=== PATIENT | male | born 1945 | race Caucasian/White ===

== ENCOUNTER → 2017-11-23 | Outpatient (CLI) | payer MEDICARE ==
--- NOTE | 2017-11-23 21:10 | EST ---
EXERCISE STRESS DATE OF SERVICE: 11/23/2017 AGE: 72 SEX: Male HT: 72" WT: 205 PROTOCOL: Stress Echo STAGE: 2 DURATION OF EXERCISE: 5 minutes HEART RATE REST: 71 BLOOD PRESSURE REST: 124/68 MAXIMUM HEART RATE ACHIEVED: 130 MAXIMUM BLOOD PRESSURE: 198/47 85% MPHR: 124 100% MPHR: 146 METS: 7.0 INDICATIONS: Short of breath. CONCLUSION: Baseline EKG revealed normal sinus rhythm without significant ST-T changes. Patient walked on a standard Kevon protocol for 5 minutes and achieved a maximal heart rate of 130 beats per minute which is more than 85% of predicted maximal. He developed fatigue and shortness of breath but did not have any angina or arrhythmia. His resting heart rate was 70 beats per minute. Peak heart rate is 130 beats per minute. Resting blood pressure was 124/68 and peak blood pressure was 198/47. EKG was unremarkable. By EKG criteria, this is a negative stress test with limited exercise capacity. Rare isolated PVC was noted. There was no angina. Baseline echo images revealed normal wall motion and thickening of all segments. At peak exercise there was good augmentation of left ventricular wall motion wall thickening of all segments suggesting that there is no evidence of any stress-induced ischemia on this study. IMPRESSION: 1. By EKG criteria this is a negative stress test with limited exercise capacity. 2. Normal stress echocardiogram. MMODL / IJN: [id number] /
== END | disposition home or self-care (01) ==
LOC: RADNMMAIN 08:55
PROVIDERS: ATTEND Family Medicine
DX: R06.02 Shortness of breath (principal)
CPT/HCPCS: 93351

== ENCOUNTER 2023-11-30 11:45 | Emergency (ER) | payer MEDICARE ==
[2023-11-30 12:07] VITALS: BP 123/73; PULSE 77; RESP 18; TEMP 98.1
[2023-11-30] MEDS ORDERED: CLOBETASOL PROP 0.05% CR 15GM TOPICAL STA (12:33)
[2023-11-30 12:45] LABS: Glucose,Whole Blood 182 mg/dL (70-110)
[2023-11-30 13:07] LABS: Appearance,Urine Clear (Clear); Bilirubin,Urine Negative (Negative); Blood,Urine Trace (Negative); Calcium Oxalate Crystals,Urine Rare /hpf; Color,Urine Light Yellow; Glucose,Urine (UA) 4+ (Negative); Ketones,Urine Negative (Negative); Leukocyte Esterase,Urine Moderate (Negative); Mucus,Urine Occasional /hpf; Nitrite,Urine Negative (Negative); PH, Urine 5.5 (5.0-8.0); Protein,Urine Trace (Negative); RBC,Urine 4 /hpf (0-5); Specific Gravity,Urine 1.025 (1.001-1.035); Squamous Epithelial Cell,Urine 2 /hpf (0-4); Urobilinogen,Urine <2.0 mg/dL (<2.0); WBC,Urine 4 /hpf (0-5)
--- NOTE | 2023-11-30 15:12 | ED ---
Male Urogenital HPI - General Chief complaint: Urogenital Stated complaint: Urogenital Time Seen by Provider: 11/30/23 11:58 Source: patient, RN notes reviewed Mode of arrival: ambulatory Limitations: no limitations - History of Present Illness Initial comments: This is an 78-year-old male presenting with swelling of his foreskin x 4 days. Patient states he is still able to urinate but having some difficulty due to partial obstruction. Patient endorses recent history of similar symptoms about 1 month ago, receiving steroid cream he has been applying for several days with minimal relief. Patient otherwise denies urinary symptoms states he has been taking tamsulosin for BPH with improvement noted. Also endorses history of diabetes. Patient denies urethral discharge, dysuria, suprapubic pressure, hematuria, fever, chills. MD Complaint: other (Foreskin edema) Onset/Timin -: days(s) Location: penis Radiation: none - Related Data Previous Rx's Medication Instructions Recorded Cephalexin [Keflex] 500 mg PO Q6HR 1 Days #40 cap 11/30/23 Clobetasol Propionate [Temovate 1 applic TOPICAL BID #15 gm 11/30/23 0.05% Cream] Clotrimazole Cream [Lotrimin Cream] 1 applic TOPICAL BID #15 gm 11/30/23 Allergies Allergy/AdvReac Type Severity Reaction Status Date / Time barium iodide Allergy Unknown Verified 11/30/23 12:03 barium sulfate Allergy Unknown Verified 11/30/23 12:03 Review of Systems ROS Statement: Those systems with pertinent positive or pertinent negative responses have been documented in the HPI. ROS Other: All systems not noted in ROS Statement are negative. Past Medical History Past Medical History: Diabetes Mellitus, Hyperlipidemia, Hypertension Past Surgical History: Unable to Obtain Smoking Status: Never smoker Past Alcohol Use History: None Reported Past Drug Use History: None Reported General Exam - General Exam Comments Initial Comments: Patient appears to demonstrate early signs of memory loss/dementia Limitations: no limitations General appearance: alert, in no apparent distress Head exam: Present: atraumatic, normocephalic, normal inspection Eye exam: Present: normal appearance, PERRL, EOMI. Absent: scleral icterus, conjunctival injection, periorbital swelling ENT exam: Present: normal exam, mucous membranes moist Neck exam: Present: normal inspection. Absent: tenderness, meningismus, lymphadenopathy Respiratory exam: Present: normal lung sounds bilaterally. Absent: respiratory distress, wheezes, rales, rhonchi, stridor Cardiovascular Exam: Present: regular rate, normal rhythm, normal heart sounds. Absent: systolic murmur, diastolic murmur, rubs, gallop, clicks GI/Abdominal exam: Present: soft, normal bowel sounds. Absent: distended, tenderness, guarding, rebound, rigid External exam: Present: erythema, swelling, other (Positive significant edema and erythema of foreskin. Unable to retract around glans. Negative urethral discharge or discharge from foreskin) Extremities exam: Present: normal inspection, full ROM, normal capillary refill. Absent: tenderness, pedal edema, joint swelling, calf tenderness Back exam: Present: normal inspection Neurological exam: Present: alert, oriented X3, CN II-XII intact Psychiatric exam: Present: normal affect, normal mood Skin exam: Present: warm, dry, intact, normal color. Absent: rash Course Vital Signs 11/30/23 12:03 Temperature 98.1 F Pulse Rate 77 Respiratory 18 Rate Blood Pressure 123/73 O2 Sat by Pulse 96 Oximetry Medical Decision Making - Medical Decision Making Was pt. sent in by a medical professional or institution (MICKIE Oneal, MIXING MACHINE FEEDER, urgent care, hospital, or snf...) When possible be specific @ -[No] Did you speak to anyone other than the patient for history (EMS, parent, family, police, friend...)? What history was obtained from this source @ -[No] Did you review nursing and triage notes (agree or disagree)? Why? @ -[I reviewed and agree with nursing and triage notes] Were old charts reviewed (outside hosp., previous admission, EMS record, old EKG, old radiological studies, urgent care reports/EKG's, snf records)? Report findings @ -[No old charts were reviewed] Differential Diagnosis (chest pain, altered mental status, abdominal pain women, abdominal pain men, vaginal bleeding, weakness, fever, dyspnea, syncope, headache, dizziness, GI bleed, back pain, seizure, CVA, palpatations, mental he alth, musculoskeletal)? @ -Phimosis, balanitis, UTI, cellulitis STI, Mel infection EKG interpreted by me (3pts min.). @ -Not on X-rays interpreted by me (1pt min.). @ -[None done] CT interpreted by me (1pt min.). @ -[None done] U/S interpreted by me (1pt. min.). @ -[None done] What testing was considered but not performed or refused? (CT, X-rays, U/S, labs)? Why? @ -[None] What meds were considered but not given or refused? Why? @ -Attempted clobetasol application with patient. Patient declined stating he wanted to take the cream at home with him. Due to delay in cream arrival, Patient became agitated and left prior to application of cream. Did you discuss the management of the patient with other professionals (professionals i.e. , PA, MIXING MACHINE FEEDER, lab, RT, psych nurse, manager social responsibility, court crier, teacher, founder chairman and chief creative officer, lining caser)? Give summary @ -[No] Was smoking cessation discussed for >3mins.? @ -[No] Was critical care preformed (if so, how long)? @ -[No] Were there social determinants of health that impacted care today? How? (Homelessness, low income, unemployed, alcoholism, drug addiction, transportation, low edu. Level, literacy, decrease access to med. care, [facility], rehab)? @ -[No] Was there de-escalation of care discussed even if they declined (Discuss DNR or withdrawal of care, Hospice)? DNR status @ -[No] What co-morbidities impacted this encounter? (DM, HTN, Smoking, COPD, CAD, Cancer, CVA, ARF, Chemo, Hep., AIDS, mental health diagnosis, sleep apnea, morbid obesity)? @ -[None] Was patient admitted / discharged? Hospital course, mention meds given and route, prescriptions, significant lab abnormalities, going to OR and other pertinent info. @ -Discharged/elopement AGAINST MEDICAL ADVICE. UA revealed leukocyte Estrace but minimal white blood cells or bacteria. Patient left prior to attempted treatment. Keflex, clotrimazole cream, clobetasol cream sent to pharmacy. Chauncey follow-up with urology for ongoing symptoms. Undiagnosed new problem with uncertain prognosis? @ -[No] Drug Therapy requiring intensive monitoring for toxicity (Heparin, Nitro, Insulin, Cardizem)? @ -[No] Were any procedures done? @ -[No] Diagnosis/symptom? @ -Phimosis, cellulitis/candidal infection Acute, or Chronic, or Acute on Chronic? @ -Acute Uncomplicated (without systemic symptoms) or Complicated (systemic symptoms)? @ -Uncomplicated Side effects of treatment? @ -[No] Exacerbation, Progression, or Severe Exacerbation? @ -[No] Poses a threat to life or bodily function? How? (Chest pain, [place], [place], pneumonia, PE, COPD, DKA, ARF, appy, cholecystitis, CVA, Diverticulitis, Homicidal, Suicidal, threat to staff... and all critical care pts) @ -[No] - Lab Data Lab Results 11/30/23 11/30/23 Range/Units 12:44 12:50 POC Glucose (mg/dL) 182 H (70-110) mg/dL POC Glu Carry Out Clerk ID Mynor Jefferson Urine Color Light Yellow Urine Appearance Clear (Clear) Urine pH 5.5 (5.0-8.0) Ur Specific Di[place] 1.025 (1.001-1.035) Urine Protein Trace H (Negative) Urine Glucose (UA) 4+ H (Negative) Urine Ketones Negative (Negative) Urine Blood Trace H (Negative) Urine Nitrite Negative (Negative) Urine Bilirubin Negative (Negative) Urine Urobilinogen <2.0 (<2.0) mg/dL Ur Leukocyte Esterase Moderate H (Negative) Urine RBC 4 (0-5) /hpf Urine WBC 4 (0-5) /hpf Ur Squamous Epith Cells 2 (0-4) /hpf Calcium Oxalate Crystal Rare H (None) /hpf Urine Mucus Occasional H (None) /hpf Disposition Clinical Impression: Phimosis of penis, Balanitis, Cellulitis of skin Disposition: LEFT AGAINST MEDICAL ADVICE Condition: Good Instructions (If sedation given, give patient instructions): Phimosis (ED) Prescriptions: Cephalexin [Keflex] 500 mg PO Q6HR 1 Days #40 cap Clotrimazole Cream [Lotrimin Cream] 1 applic TOPICAL BID #15 gm Clobetasol Propionate [Temovate 0.05% Cream] 1 applic TOPICAL BID #15 gm Is patient prescribed a controlled substance at d/c from ED?: No Referrals: Allan Banks MD [Primary Care Provider] - 1-2 days Time of Disposition: 13:50
== END 2023-11-30 15:54 | disposition left against medical advice (07) ==
LOC: EC 11:45
CPT/HCPCS: 36415; 81001; 99283

== ENCOUNTER 2023-12-10 09:03 | Emergency (ER) | payer MEDICARE ==
[2023-12-10 09:33] VITALS: TEMP 97.8
[2023-12-10 10:16] LABS: Basophils % (A) 0 %; Eosinophils # (A) 0.1 k/uL (0-0.7); Eosinophils % (A) 1 %; HCT 47.5 % (39.0-53.0); HGB 15.9 gm/dL (13.0-17.5); Lymphocytes % (A) 14 %; MCHC 33.4 g/dL (31.0-37.0); MCV 95.9 fL (80.0-100.0); Mean Platelet Volume 7.9; Monocytes # (A) 0.4 k/uL (0-1.0); Monocytes % (A) 6 %; Neutrophils # (A) 5.4 k/uL (1.3-7.7); Neutrophils % (A) 77 %; Platelet Count 166 k/uL (150-450); RBC 4.95 m/uL (4.30-5.90); RDW 12.6 % (11.5-15.5); WBC 7.1 k/uL (3.8-10.6)
[2023-12-10 10:17] LABS: Appearance,Urine Clear (Clear); Bilirubin,Urine Negative (Negative); Blood,Urine Small (Negative); Color,Urine Light Yellow; Glucose,Urine (UA) 4+ (Negative); Ketones,Urine Negative (Negative); Leukocyte Esterase,Urine Trace (Negative); Mucus,Urine Occasional /hpf; Nitrite,Urine Negative (Negative); PH, Urine 5.5 (5.0-8.0); Protein,Urine Negative (Negative); RBC,Urine 2 /hpf (0-5); Specific Gravity,Urine 1.025 (1.001-1.035); Urobilinogen,Urine <2.0 mg/dL (<2.0); WBC,Urine 2 /hpf (0-5)
[2023-12-10 10:24] LABS: ALT 26 U/L (4-49); African American GFR (CKD) >90 (>60 ml/min/1.73 sqM); Anion Gap 6 mmol/L; Blood Urea Nitrogen 18 mg/dL (9-20); Calcium 8.4 mg/dL (8.4-10.2); Carbon Dioxide 25 mmol/L (22-30); Chloride 106 mmol/L (98-107); Glucose 164 mg/dL (74-99); Non-African American GFR(CKD) >90 (>60 ml/min/1.73 sqM); Sodium 137 mmol/L (137-145)
[2023-12-10 10:28] LABS: AST 35 U/L (17-59); Albumin 3.7 g/dL (3.5-5.0); Alkaline Phosphatase 49 U/L (38-126); Potassium 4.5 mmol/L (3.5-5.1); Total Bilirubin 1.2 mg/dL (0.2-1.3); Total Protein 6.2 g/dL (6.3-8.2)
--- NOTE | 2023-12-10 11:06 | ED ---
Male Urogenital HPI - General Chief complaint: Urogenital Stated complaint: Urogenital Time Seen by Provider: 12/10/23 09:30 Source: patient, RN notes reviewed Mode of arrival: ambulatory Limitations: altered mental status - History of Present Illness Initial comments: 78-year-old male presenting to the ER with a chief complaint of penile pain. Patient is a known diabetic. Patient reports this been ongoing for the past 2 weeks. He was seen here on 11/30/23 and diagnosed with a UTI and balanitis patient was started on Keflex, clotrimazole cream and clobetasol cream. Patient states he used creams for 4 days and saw no improvement so he stopped using them. He has been taking Keflex as prescribed. He has not seen any improvement in his symptoms and has been noticing increase in pain. He states that he is unable to pull back foreskin to urinate due to the pain. He has been able to urinate without difficulty but does not pull back the foreskin. Patient denies any abdominal pain, fevers, chills, nausea, vomiting or other complaints. - Related Data Previous Rx's Medication Instructions Recorded Cephalexin [Keflex] 500 mg PO Q6HR 1 Days #40 cap 11/30/23 Clobetasol Propionate [Temovate 1 applic TOPICAL BID #15 gm 11/30/23 0.05% Cream] Clotrimazole Cream [Lotrimin Cream] 1 applic TOPICAL BID #15 gm 11/30/23 Fluconazole 150 mg PO ONCE #2 tab 12/10/23 Allergies Allergy/AdvReac Type Severity Reaction Status Date / Time barium iodide Allergy Unknown Verified 12/10/23 09:10 barium sulfate Allergy Unknown Verified 12/10/23 09:10 Review of Systems ROS Statement: Those systems with pertinent positive or pertinent negative responses have been documented in the HPI. ROS Other: All systems not noted in ROS Statement are negative. Past Medical History Past Medical History: Diabetes Mellitus, Hyperlipidemia, Hypertension Past Surgical History: Unable to Obtain Smoking Status: Never smoker Past Alcohol Use History: None Reported Past Drug Use History: None Reported General Exam Limitations: altered mental status General appearance: alert, in no apparent distress Respiratory exam: Present: normal lung sounds bilaterally. Absent: respiratory distress, wheezes, rales, rhonchi, stridor Cardiovascular Exam: Present: regular rate, normal rhythm, normal heart sounds. Absent: systolic murmur, diastolic murmur, rubs, gallop, clicks GI/Abdominal exam: Present: soft, normal bowel sounds. Absent: distended, tenderness, guarding, rebound, rigid exam: Present: other (Erythematous glans of penis with white thick plaque surrounding shaft and foreskin. No penile discharge. Area is tender to touch. Foreskin is able to be pulled back and reduced) Neurological exam: Present: alert, oriented X3, CN II-XII intact Skin exam: Present: warm, dry, intact, normal color. Absent: rash Course Vital Signs 12/10/23 12/10/23 12/10/23 09:05 09:28 12:26 Temperature 97.6 F 97.8 F Pulse Rate 64 60 67 Respiratory 16 18 16 Rate Blood Pressure 143/71 126/91 146/85 O2 Sat by Pulse 99 97 Oximetry Medical Decision Making - Medical Decision Making Was pt. sent in by a medical professional or institution (, PA, AIRCRAFT INSTRUMENT MECHANIC, urgent care, hospital, or alf...) When possible be specific @ -No Did you speak to anyone other than the patient for history (EMS, parent, family, police, friend...)? What history was obtained from this source @ -No Did you review nursing and triage notes (agree or disagree)? Why? @ -I reviewed and agree with nursing and triage notes Were old charts reviewed (outside hosp., previous admission, EMS record, old EKG, old radiological studies, urgent care reports/EKG's, alf records)? Report findings @ -Past, I reviewed ER visit from 11-30-2023. Patient seen for similar complaint diagnosed with balanitis and UTI started on Keflex, clotrimazole and clobetasol. Differential Diagnosis (chest pain, altered mental status, abdominal pain women, abdominal pain men, vaginal bleeding, weakness, fever, dyspnea, syncope, headache, dizziness, GI bleed, back pain, seizure, CVA, palpatations, mental health, musculoskeletal)? @ -UTI, urinary retention, phimosis, testicular torsion, balanitis... This list is not meant to be all-inclusive EKG interpreted by me (3pts min.). @ -None done X-rays interpreted by me (1pt min.). @ -None done CT interpreted by me (1pt min.). @ -None done U/S interpreted by me (1pt. min.). @ -None done What testing was considered but not performed or refused? (CT, X-rays, U/S, labs)? Why? @ -None What meds were considered but not given or refused? Why? @ -None Did you discuss the management of the patient with other professionals (professionals i.e. , PA, AIRCRAFT INSTRUMENT MECHANIC, lab, RT, psych nurse, director social, perianesthesia manager, teacher, real estate loan officer, adult protective caseworker)? Give summary @ -No Was smoking cessation discussed for >3mins.? @ -No Was critical care preformed (if so, how long)? @ -No Were there social determinants of health that impacted care today? How? (Homelessness, low income, unemployed, alcoholism, drug addiction, transportation, low edu. Level, literacy, decrease access to med. care, nursing home, rehab)? @ -No Was there de-escalation of care discussed even if they declined (Discuss DNR or withdrawal of care, Hospice)? DNR status @ -No What co-morbidities impacted this encounter? (DM, HTN, Smoking, COPD, CAD, Cancer, CVA, ARF, Chemo, Hep., AIDS, mental health diagnosis, sleep apnea, morbid obesity)? @ -None Was patient admitted / discharged? Hospital course, mention meds given and route, prescriptions, significant lab abnormalities, going to OR and other pertinent info. @ -Discharge. 78-year-old male presented to the ER for evaluation of penile pain. Patient seen here 10 days prior for similar complaints started on Keflex, clotrimazole and clobetasol. History and physical exam completed. Vitals stable. Exam remarkable for erythema and thick white plaque to penile shaft and base. Findings consistent with a candidal infection. No penile discharge. No scrotal abnormalities. Due to patient reporting worsening of symptoms laboratory studies and urinalysis obtained. Laboratory studies unremarkable. Urinalysis showing 4+ glucose likely related to patient's diabetes. Small blood urine will be sent for culture. Postvoid bladder scan 30ml. I discussed at length with patient regarding how to properly clean and care for foreskin. I advised him to clean multiple times a day with warm soapy water and dry thoroughly prior to placing antifungal cream. I instructed patient to to continue using antifungal cream, clotrimazole, given at last ER visit. Patient also given p.o. Diflucan. I also instructed patient to follow-up closely with PCP for reevaluation and urology, referral given. Phimosis believed to be due to infection pain as I was able to completely retract and reduce foreskin. Patient is eager and stable for discharge at this time. Strict return parameters discussed. Patient discharged in stable condition with follow-up to PCP/urology. Patient verbally expressed understanding and agreement with care plan. Case discussed with ED attending, Dr. Trujillo. Undiagnosed new problem with uncertain prognosis? @ -No Drug Therapy requiring intensive monitoring for toxicity (Heparin, Nitro, Insulin, Cardizem)? @ -No Were any procedures done? @ -No Diagnosis/symptom? @ -Balanitis/phimosis of penis Acute, or Chronic, or Acute on Chronic? @ -Acute Uncomplicated (without systemic symptoms) or Complicated (systemic symptoms)? @ -Uncomplicated Side effects of treatment? @ -No Exacerbation, Progression, or Severe Exacerbation? @ -No Poses a threat to life or bodily function? How? (Chest pain, USA, [place], pneumonia, PE, COPD, DKA, ARF, appy, cholecystitis, CVA, Diverticulitis, Homicidal, Suicidal, threat to staff... and all critical care pts) @ -No - Lab Data Result diagrams: 12/10/23 09:57 12/10/23 09:57 Lab Results 12/10/23 12/10/23 12/10/23 Range/Units 09:57 09:57 09:57 WBC 7.1 (3.8-10.6) k/uL RBC 4.95 (4.30-5.90) m/uL Hgb 15.9 (13.0-17.5) gm/dL Hct 47.5 (39.0-53.0) % MCV 95.9 (80.0-100.0) fL MCH 32.0 (25.0-35.0) pg MCHC 33.4 (31.0-37.0) g/dL RDW 12.6 (11.5-15.5) % Plt Count 166 (150-450) k/uL MPV 7.9 Neutrophils % 77 % Lymphocytes % 14 % Monocytes % 6 % Eosinophils % 1 % Basophils % 0 % Neutrophils # 5.4 (1.3-7.7) k/uL Lymphocytes # 1.0 (1.0-4.8) k/uL Monocytes # 0.4 (0-1.0) k/uL Eosinophils # 0.1 (0-0.7) k/uL Basophils # 0.0 (0-0.2) k/uL Sodium 137 (137-145) mmol/L Potassium 4.5 (3.5-5.1) mmol/L Chloride 106 (98-107) mmol/L Carbon Dioxide 25 (22-30) mmol/L Anion Gap 6 mmol/L BUN 18 (9-20) mg/dL Creatinine 0.63 L (0.66-1.25) mg/dL Est GFR (CKD-EPI)AfAm >90 (>60 ml/min/1.73 sqM) Est GFR (CKD-EPI)NonAf >90 (>60 ml/min/1.73 sqM) Glucose 164 H (74-99) mg/dL Plasma Lactic Acid Brandon (0.7-2.0) mmol/L Calcium 8.4 (8.4-10.2) mg/dL Total Bilirubin 1.2 (0.2-1.3) mg/dL AST 35 (17-59) U/L ALT 26 (4-49) U/L Alkaline Phosphatase 49 (38-126) U/L Total Protein 6.2 L (6.3-8.2) g/dL Albumin 3.7 (3.5-5.0) g/dL Urine Color Light Yellow Urine Appearance Clear (Clear) Urine pH 5.5 (5.0-8.0) Ur Specific [place] 1.025 (1.001-1.035) Urine Protein Negative (Negative) Urine Glucose (UA) 4+ H (Negative) Urine Ketones Negative (Negative) Urine Blood Small H (Negative) Urine Nitrite Negative (Negative) Urine Bilirubin Negative (Negative) Urine Urobilinogen <2.0 (<2.0) mg/dL Ur Leukocyte Esterase Trace H (Negative) Urine RBC 2 (0-5) /hpf Urine WBC 2 (0-5) /hpf Urine Mucus Occasional H (None) /hpf 12/10/23 Range/Units 09:57 WBC (3.8-10.6) k/uL RBC (4.30-5.90) m/uL Hgb (13.0-17.5) gm/dL Hct (39.0-53.0) % MCV (80.0-100.0) fL MCH (25.0-35.0) pg MCHC (31.0-37.0) g/dL RDW (11.5-15.5) % Plt Count (150-450) k/uL MPV Neutrophils % % Lymphocytes % % Monocytes % % Eosinophils % % Basophils % % Neutrophils # (1.3-7.7) k/uL Lymphocytes # (1.0-4.8) k/uL Monocytes # (0-1.0) k/uL Eosinophils # (0-0.7) k/uL Basophils # (0-0.2) k/uL Sodium (137-145) mmol/L Potassium (3.5-5.1) mmol/L Chloride (98-107) mmol/L Carbon Dioxide (22-30) mmol/L Anion Gap mmol/L BUN (9-20) mg/dL Creatinine (0.66-1.25) mg/dL Est GFR (CKD-EPI)AfAm (>60 ml/min/1.73 sqM) Est GFR (CKD-EPI)NonAf (>60 ml/min/1.73 sqM) Glucose (74-99) mg/dL Plasma Lactic Acid Brandon 1.2 (0.7-2.0) mmol/L Calcium (8.4-10.2) mg/dL Total Bilirubin (0.2-1.3) mg/dL AST (17-59) U/L ALT (4-49) U/L Alkaline Phosphatase (38-126) U/L Total Protein (6.3-8.2) g/dL Albumin (3.5-5.0) g/dL Urine Color Urine Appearance (Clear) Urine pH (5.0-8.0) Ur Specific [place] (1.001-1.035) Urine Protein (Negative) Urine Glucose (UA) (Negative) Urine Ketones (Negative) Urine Blood (Negative) Urine Nitrite (Negative) Urine Bilirubin (Negative) Urine Urobilinogen (<2.0) mg/dL Ur Leukocyte Esterase (Negative) Urine RBC (0-5) /hpf Urine WBC (0-5) /hpf Urine Mucus (None) /hpf Disposition Clinical Impression: Balanitis, Phimosis of penis Disposition: HOME SELF-CARE Condition: Stable Instructions (If sedation given, give patient instructions): Foreskin Care (ED), Balanitis (ED) Additional Instructions: Continue using clotrimazole (lotrimin) twice daily until symptoms resolve. Take another fluconazole on 12/13/23. I recommend cleaning the foreskin multiple times a day. Use warm soapy water to clean foreskin and shaft of penis, then apply cream. Follow-up with PCP and urology in the next 1 to 2 days for recheck. Return to the ER for any new or worsening concerns. Prescriptions: Fluconazole 150 mg PO ONCE #2 tab Is patient prescribed a controlled substance at d/c from ED?: No Referrals: Allan Banks MD [Primary Care Provider] - 1-2 days Luis Khan MD [STAFF PHYSICIAN] - 1-2 days Time of Disposition: 12:17
[2023-12-10 12:27] VITALS: BP 146/85; PULSE 67; RESP 16
== END 2023-12-10 12:27 | disposition home or self-care (01) ==
LOC: EC 09:03
CPT/HCPCS: 36415; 51798; 80053; 81001; 83605; 85025; 99284